=== PATIENT | female | born 2000 | race Caucasian/White ===

== ENCOUNTER 2021-01-31 01:06 | Emergency (ER) | payer MEDICAID, SELFPAY ==
[2021-01-31] VITALS (11 sets, daily range): BP systolic 104–151; BP diastolic 51–60; PULSE 74–80; RESP 18; TEMP 37.2; O2SAT 96–99
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
== END 2021-01-31 02:25 | disposition home or self-care (01) ==
PROVIDERS: Emergency Provider Student in an Organized Health Care Education/Training Program
DX: S60.212A Contusion of left wrist, initial encounter (principal); V40.5XXA Car driver injured in collision with pedestrian or animal in traffic accident, initial encounter
CPT/HCPCS: 29125; 99283; 73110